=== PATIENT | female | born 1960 | race African-American/Black ===

== ENCOUNTER 2020-09-11 14:41 | Inpatient (IN) | payer OTHER ==
[~2020-09-11] VITALS: Ht 162.6 cm; Wt 68.0 kg
[2020-09-11 14:42] VITALS: BP 163/117
[2020-09-11] MEDS ORDERED: NORCO 10-325 T1 EACH PO (14:56)
[2020-09-11] MEDS ORDERED: LORAZEPAM 0.50.5 MG PO (14:56)
[2020-09-11] MEDS ORDERED: LANTUS SUBQ (14:57)
[2020-09-11] MEDS ORDERED: TRULICITY0.75 MG/0. SUBQ (14:57)
[2020-09-11] MEDS ORDERED: PROMETH-CODEIN 65 ML PO (14:58)
[2020-09-11 15:20] LABS: ABSOLUTE NEUTROPHILS 6.9 thou/uL (1.4-8.2); BASOPHILS 0.6 % (0.0-2.0); EOSINOPHILS 1.4 % (0.0-3.0); HEMATOCRIT 38.5 % (37.0-47.0); HEMOGLOBIN 12.3 gm/dL (12.0-15.0); MCH 29.1 pg (26.0-34.0); MCHC 32.1 g/dL (28.0-37.0); MCV 90.5 fL (80.0-100.0); MONOCYTES 9.1 % (1.0-8.0); PLATELET COUNT 490 thou/uL (150-400); POLYS 54.9 % (36.0-66.0); RBC 4.25 mil/uL (4.20-5.00); WBC 12.6 thou/uL (4.0-11.0)
[2020-09-11 15:28] LABS: CALCIUM 9.2 mg/dL (8.5-10.1); CREATININE 0.9 mg/dL (0.6-1.0); POTASSIUM 3.1 mmol/L (3.5-5.1)
--- NOTE | 2020-09-11 15:40 | NUR ---
RT IN AND ADMINISTERING NEB TX
[2020-09-11 18:30] VITALS: BP 163/117
[2020-09-11 18:50] VITALS: BP 167/86
[2020-09-11 19:32] VITALS: BP 173/109
[2020-09-12] VITALS (7 sets, daily range): BP systolic 151–167; BP diastolic 84–106
--- NOTE | 2020-09-12 02:57 | NUR ---
Judson from lab called, notified that patient is covid -19 postive.
[2020-09-12 06:20] LABS: HEMATOCRIT 35.8 % (37.0-47.0); HEMOGLOBIN 11.7 gm/dL (12.0-15.0); MCH 29.8 pg (26.0-34.0); MCHC 32.7 g/dL (28.0-37.0); MCV 91.1 fL (80.0-100.0); RBC 3.93 mil/uL (4.20-5.00); RDW 14.2 % (10.5-14.5); WBC 15.1 thou/uL (4.0-11.0)
[2020-09-12 06:29] LABS: CALCIUM 9.6 mg/dL (8.5-10.1); CREATININE 1.1 mg/dL (0.6-1.0)
[2020-09-12 06:37] LABS: POTASSIUM 4.2 mmol/L (3.5-5.1)
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
[2020-09-12 16:38] LABS: ALBUMIN 3.6 g/dL (3.4-5.0); DIRECT BILIRUBIN < 0.1 mg/dL (<0.1-0.2); SGOT 41 U/L (15-37); SGPT 48 U/L (14-59); TOTAL BILIRUBIN 0.3 mg/dL (0.2-1.0)
--- NOTE | 2020-09-12 18:45 | NUR ---
ASSUMED PATIENT CARE AT 0700. A/O 4. VERY ANXIOUS. ON 3L/NC. ST ON MONITOR. UP AD DIXIE. AFEBRILE. WILL KEEP MONITOR.
[2020-09-13 00:05] VITALS: BP 128/95
[2020-09-13 04:05] LABS: ALBUMIN 3.4 g/dL (3.4-5.0); DIRECT BILIRUBIN < 0.1 mg/dL (<0.1-0.2); SGOT 374 U/L (15-37); SGPT 291 U/L (30-65); TOTAL BILIRUBIN 0.4 mg/dL (0.2-1.0); TOTAL PROTEIN 6.6 g/dL (6.4-8.2)
[2020-09-13 04:06] VITALS: BP 172/127
--- NOTE | 2020-09-13 05:26 | HC ---
[facility] [place] [address] CONSULTATION Name: ONUR CLINTON Room #: 360-P ADM IN M.R.#: [id number] Admission: 09/11/20 Attend Phys: Christian Sherman MD Discharge: Date of : 64 Report #: [id number] THIS REPORT FOR: cc: FAM - No family physician/PCP FAM - No family physician/PCP Randall Nguyen MD ~ DATE OF SERVICE: 09/12/2020 INFECTIOUS DISEASE CONSULTATION ATTENDING PHYSICIAN: Dr. Sherman. REASON FOR EVALUATION: COVID-19 infection, complicated by pneumonitis. HISTORY OF PRESENT ILLNESS: Chart reviewed, patient examined. This is a 60-year-old woman with diabetes mellitus, also apparently has some underlying COPD, who has not been feeling well for a lengthy period of time, perhaps 3 months, although over the course of the last week has had increasing difficulty breathing, has had anxiety component as well. She has become very uncomfortable with repeated paroxysms of coughing describes a band-like pain around her mid chest. It is not clear if she had fevers or chills. She presented to the Emergency Room, white count was slightly elevated. Chest x-ray noted perhaps right basilar pneumonitis. Lactic acid is 1.7. COVID antigen testing was negative with PCR being positive. Blood cultures are sterile thus far. She denies any recorded temperature elevations. She is empirically started on ceftriaxone and doxycycline, later it was discontinued and now is on azithromycin. ALLERGIES: None known. MEDICATIONS: Include ondansetron, polyethylene, hydrocodone, methylprednisolone, enoxaparin, insulin glargine, lorazepam, ceftriaxone, azithromycin, zinc, cholecalciferol, thiamine, and ascorbic acid. PAST MEDICAL HISTORY: Diabetes mellitus type 2, hypertension, anxiety, asthma, depression, fibroid tumors, and endometriosis. SOCIAL HISTORY: Does smoke cigarettes, occasional ethanol, no illicit drug use. FAMILY HISTORY: Noncontributory. REVIEW OF SYSTEMS: Otherwise, unremarkable. PHYSICAL EXAMINATION: GENERAL: She is quite anxious, in [id number] distress, and reasonably [facility] [address] [place] [address] CONS[facility]ATION [facility] IN ..#: [id number] Admission: 09/11/20 Attend Phys: Christian Sherman MD Discharge: Date of : 64 Report #: [id number] well nourished. VITAL SIGNS: Temperature 98, pulse 110, respirations 20, blood pressure 154/99. SKIN: Warm, dry, no rashes. HEENT: Normocephalic. Extraocular muscles are intact. Nasal cannula is in place. NECK: Supple. LUNGS: Diminished breath sounds. Few scattered crackles at the bases. HEART: Regular, tachycardic. I do not appreciate a murmur. ABDOMEN: Soft, nontender. EXTREMITIES: No cyanosis. GENITOURINARY AND RECTAL: Deferred. LABORATORY DATA: Electrolytes: Sodium 140, potassium 4.2, chloride 105, bicarbonate is 23, anion gap of 12, BUN and creatinine 11 and 1.1, and glucose of 284. CBC: White count of __, H 11.7 and 35.8, and platelets of 441. Lactic acid is 1.7. ASSESSMENT: 1. COVID-19 infection, complicated by pneumonitis and respiratory failure. 2. Diabetes mellitus. 3. Anxiety. 4. Hypertension. We will add Remdesivir, ivermectin to her coronavirus treatment. She remains somewhat tenuous at this point, it is difficult to ascertain what role anxiety is playing, but I suspect significant continued symptomatic treatments as able. We will add incentive spirometry. Monitor expectantly. <ELECTRONICALLY SIGNED> By: Randall Nguyen MD 09/13/20 0526 [id number] [id number] Randall Nguyen MD /nt
--- NOTE | 2020-09-13 06:35 | NUR ---
Pt. is very anxious at beginning of shift. C/O rib cage pain from coughing too much , offered pain med and cough med but refused when offered. Elevated BP due to coughing when BP is taken. She started coughing out phlegm and stated there's blood in it. Sputum is pinkish and blood tinged. Around 2215 , she called to say she's having an attack and can't breathe. Found sitting up on bed without her oxygen. She is on O2 at 2L/NC initially then she takes it off when getting up to the bathroom.Encouraged pt. to keep oxygen when getting up to the bathroom , she has enough tubing to reach bathroom. Offered to use commode until she is breathing better , but she gets argumentative stating she is not invalid. Lorazepam and hydrocodone given to help with anxiety and pain. Oxygen titrated up to 5L at that time to keep her O2 sat greater than 90%. RT notified . Once pt. started to calm down , BP is better and able to titrate oxygen back down to 3L/NC. She slept well until 0400 then once she woke up she's having another episode of being short of breathe again. She is tachypneic , coughing out pinkish pleghm ( this is before guiafenessin elixir given ). RT paged who gave her breathing tx. Hydrocodone and guiafenessin given. WATCHER [employer] notified and orders received. IV fluids dc'd , CXR ordered for this am and to give morphine to help with air hunger. Pt. refused to take morphine stating she had a bad reaction to that and she only takes med that starts with letter D. BP is again elevated as she coughs whenever BP is taken. Pt. encouraged to relax and take a deep breath to conserve her energy and oxygen consumption.
[2020-09-13 07:49] VITALS: BP 129/87
[2020-09-13 11:43] VITALS: BP 145/97
[2020-09-13 18:16] VITALS: BP 155/101
--- NOTE | 2020-09-13 18:46 | NUR ---
PATIENT HAS RESTED IN ROOM THROUGH THE DAY. SHE IS ALERT ORIENTED X4. DOES NOT SEEM TO BE IN PAIN AT THIS TIME. EARLIER SHE HAD PAIN MEDICATION AND ATIVAN WHICH DID HELP HER ANXIETY AND CHEST PAIN. WILL CONT WITH PLAN OF CARE.
[2020-09-13 19:58] VITALS: BP 142/93
[2020-09-14 01:08] VITALS: BP 149/97
--- NOTE | 2020-09-14 03:51 | NUR ---
CARE ASSUMED 1900. PT NERVOUS AND AXIOUS. COURSE CRACKLES IN ALL LUNG MILLS. FLUID DC'D PT CURRENT ONLY ABX INTRAVENOUSLY. REPORTS DRY COUGH AND ASKING WHEN SHE WILL GET TO GO HOME. PT IS ALSO TACHYPNEIC AND TACHYCARDIC WHICH CAN BE ATTRIBUTED TO HER ANXIOUSNESS. ATIVAN GIVEN X 1. ORDERED PROMETHAZINE PT REPORTS THE ALREADY ORDERED GUAIFENESIN WAS NOT ALLEVIATING HER COUGH. DAUGHTER UPDATED ABOUT PATIENTS CONDITION. WILL CONTINUE TO MONITOR AND FOLLOW POC/
--- NOTE | 2020-09-14 07:35 | EKG ---
[address] [employer] [place] [address] ELECTROCARDIOGRAM REPORT Name: ONUR CLINTON [facility] Room #: 360-[facility] IN .R.#: [id number] Admission: 09/11/20 Attend Phys: Christian Sherman MD Discharge: Date of : 64 Report #: [id number] [facility] ED Test Date: 2020-09-11 Test Time: 15:12:09 Pat Name: ONUR CLINTON Department: Room: 360 Gender: F Gaming Host: lew : 1960 Requested By: Casey Meléndez Order Number: [id number] MD: Stefan Cui Measurements Intervals [place] Rate: 112 P: 78 IN: 152 QRS: 6 QRSD: 92 T: QT: 374 QTc: 511 Interpretive Statements Sinus tachycardia Anterior infarct, old Prolonged QT interval No previous ECG available for comparison Electronically Signed On 09-14-2020 7:34:52 PIPING DESIGNER by Stefan Cui [email or web address] <ELECTRONICALLY SIGNED> By: Stefan Cui MD, [facility] 09/14/20 0734 1512 1512 Stefan Cui MD, FACC /EPI
[2020-09-14 08:30] VITALS: BP 149/92
[2020-09-14 08:39] LABS: HEMATOCRIT 35.3 % (37.0-47.0); HEMOGLOBIN 11.3 gm/dL (12.0-15.0); MCH 29.5 pg (26.0-34.0); MCHC 32.1 g/dL (28.0-37.0); MCV 91.8 fL (80.0-100.0); RBC 3.85 mil/uL (4.20-5.00); RDW 14.6 % (10.5-14.5); WBC 22.6 thou/uL (4.0-11.0)
[2020-09-14 09:04] LABS: CALCIUM 9.3 mg/dL (8.5-10.1); POTASSIUM 4.4 mmol/L (3.5-5.1)
[2020-09-14 09:07] LABS: ALBUMIN 3.4 g/dL (3.4-5.0); DIRECT BILIRUBIN < 0.1 mg/dL (<0.1-0.2); SGOT 337 U/L (15-37); SGPT 303 U/L (14-59); TOTAL BILIRUBIN 0.3 mg/dL (0.2-1.0); TOTAL PROTEIN 6.4 g/dL (6.4-8.2)
--- NOTE | 2020-09-14 12:11 | NUR ---
pt went to restroom without oxygen or nurse/aid notification. Encouraged pt to call for assistance as to not desat. Pt stated she is fine. Audible wheezing heard upon ambulation back to bed.
[2020-09-14 12:45] VITALS: BP 157/98
--- NOTE | 2020-09-14 14:18 | NUR ---
Prior to administering medication, pt bed alarm was triggered. Pt did not call out for assist to bsc. Pt had removed oxygen with audible wheezing. This RN explained importance of having assist to bsc to remove SCDs as well as ensure oxygen tubing will reach. Pt refused to acknowledge this RN recommendation while stating, "I do not need help." Pt had also missed the commode and urine was covering the floor around pt. Floor was mopped and dried. Fall precautions in place with additional recommendation to pt for assist before getting up.
--- NOTE | 2020-09-14 16:07 | NUR ---
INITIAL ASSESSMENT: REBECCA reviewed chart and spoke with nursing and attending physician. Pt was admitted due to pneumonia. Pt placed in Enhanced Isolation due to COVID. Pt is afebrile and on 5L of O2. Pt is on IV abx and IV steroids. Pt is on Remdesivir and Ivermectin. REBECCA spoke with pt via phone. Introduced role of SW. Pt is alert/orientated and states she is in town visiting her cousins. Pt normally lives out in [place]. Prior to admission, pt was independent with ADLs. No use of DME. No hx of HH or post-acute placement. Pt has a PCP in [place]. Pt voiced concerns regarding need for O2 and wanting to travel back to [place]. REBECCA is following to assist as needed with discharge planning.
[2020-09-14 17:38] VITALS: BP 148/104
[2020-09-14 20:55] VITALS: BP 153/95
[2020-09-15 04:42] VITALS: BP 151/101
[2020-09-15 05:43] LABS: HEMATOCRIT 34.9 % (37.0-47.0); HEMOGLOBIN 11.1 gm/dL (12.0-15.0); MCH 29.1 pg (26.0-34.0); MCHC 31.9 g/dL (28.0-37.0); MCV 91.2 fL (80.0-100.0); RBC 3.82 mil/uL (4.20-5.00); RDW 14.6 % (10.5-14.5); WBC 19.3 thou/uL (4.0-11.0)
[2020-09-15 06:14] LABS: CALCIUM 8.7 mg/dL (8.5-10.1); CREATININE 0.9 mg/dL (0.6-1.0); POTASSIUM 4.2 mmol/L (3.5-5.1)
[2020-09-15 06:16] LABS: ALBUMIN 3.3 g/dL (3.4-5.0); DIRECT BILIRUBIN 0.1 mg/dL (<0.1-0.2); TOTAL BILIRUBIN 0.3 mg/dL (0.2-1.0); TOTAL PROTEIN 5.8 g/dL (6.4-8.2)
--- NOTE | 2020-09-15 06:30 | NUR ---
PT UP TO BATHROOM WITH MINIMAL ASSIST. PT ASKING QUESTIONS ABOUT DISCHARGE AND ANSWERED QUESTIONS AND EDUCATED PT. RECOVERED STOOL SAMPLE AND DELIVERED TO LAB. PT REQUEST WERE MINIMAL THIS SHIFT.
[2020-09-15 07:58] VITALS: BP 91/69
[2020-09-15 11:03] VITALS: BP 132/81
--- NOTE | 2020-09-15 13:26 | NUR ---
REBECCA reviewed chart and spoke with nursing and attending physician. Pt remains in Enhanced Isolation due to COVID. Pt is afebrile and is now down to 3L of O2. Pt is on IV abx and IV steroids. Pt has completed course of Ivermectin. Remdesivir has been stopped due to elevated LFTs. manager multimedia has met with pt to discuss plan of care. REBECCA placed call to pt's room. No answer. Pt will need a rest/exercise oximetry prior to discharge to determine if pt needs home O2. REBECCA is following to assist as needed with discharge planning.
[2020-09-15 15:48] VITALS: BP 156/94
--- NOTE | 2020-09-15 17:09 | NUR ---
PT SEEN TODAY BY , , RT, AND RN AT THE BEGINNING OF THE SHIFT PT WAS CONSOLABLE AND REDIRECTABLE. PT WAS AOX4 THOUGH SHE WAS SHOWING SIGNS OF ANXIETY, RN WAS TOLD DURING REPORT ON WHAT THE PT PREFERS SUCH NOONE TOUCHING HER TABLE AND ALLOWING PT TO PERFORM BLOOD SUGAR CHECKS AND INSULIN ADMINISTRATION HER SELF. RN BUILT A RAPPORT WITH THE PT AND THINGS WERE MOVING ALONG PEACEFULLY. AROUND NOON PT HAD COMPLAINED THAT THE R UA IV SITE HAS BEEN HURTING AND LEAKING AND STATED THAT IT NEEDED TO BE REMOVED, RN ASSESSED THE SITE AND DETERMINED SO WELL. RN REMOVED THE IV. AND PT APPEARED TO BE A HARD STICK SO RN SUGGESTED THE IV TEAM RN DO IT. THATS WHEN PT HAD BECOME AGITATED WITH THE RN STATING WHO HAD TOLD THE RN THAT PT WAS A HARD STICK AND WAS INCONSOLABLE AND BECAME VERY CONFRONTATIONAL WITH THE RN. SHE STATED THAT SHE WANTED TO SHOWER SO RN ASKED IF IT WAS APPROPERIATE FOR THE PT TO SHOWER AND SHE WAS GIVEN ALL THE SUPPLIES TO SHOWER WELL NEW FRESH LINEN SET FOR AFTER THE SHOWER. PT HAD VERBALIZED AT THAT POINT THAT IF ANYONE FROM THE FAMILY CALLS "DON'T TELL THEM NOTHING" PT WAS STILL VERY AGITATED AND ABUSING THE CALL LIGHT ASKING FOR DIFFERENT RNs TO COME INTO THE ROOM (THE HEAD RN, THE MAIN RN, AND OTHER VARIOUS STAFF MEMBERS) TO ADDRESS ISSUES THAT PT HAD FORMULATED HERSELF. SUCH WHEN THIS RN ENTERED THE ROOM, SHE ASKED ARE YOU THE HEAD RN, WHICH RN STATED NO, I AM GUSTAVO YOUR NURSE. THE PT GOT VERY UPSET AND SAID THAT RN WAS BEING CONDESCENDING TO THE PT AND THATS NOT WHAT SHE HAD ASKED. TO WHICH RN WAS PERPLEXED AND ASKED WHAT THE PT HAD WANTED. PT THEN GOT INCREASINGLY UPSET. RN LEFT THE ROOM TO ADDRESS AND WHEN RN EXITED THE ROOM PT HAD STOMPED OUT OF THE ISOLATION (PT AOX4 KNOWING THAT SHE IS COVID POSITIVE AND AWARE OF HER SITUATION) "YELLED DID YOU NOT HEAR ME? I CALLED YOU THREE TIMES" AND RN REPLIED NO I HAVE NOT HEARD YOU I WOULD'VE REPLIED. PT BECAME VERBALLY AGGRESSIVE TOWARDS, BEING VERY CONFRONTATIONAL, NOTING/ANALYZING/HIGHLIGHTING EVERY PITCH OF THE RN'S VOICE MAKING IT NEAR IMPOSSIBLE TO DEAL WITH THE PT. RN AT THAT POINT DECIDED IT WAS NOT APPROPERIATE FOR PT TO ABUSE THE STAFF MEMBERS SUCH AND ESCLATED THE SITUATION TO NOTIFY NURSE X RAY TECH SANTIAGO, ALEJANDRO PT ADVOCATE, WELL MATTRESS STUFFER. EVERY SINGLE STAFF MEMBER ON THE UNIT HAD WITNESSED PT'S INAPPROPERIATE BEHAVIOUR AND HOSPITALIST WELL ALL CONSTITUTION PARTY JUST MENTIONED KNOWS PT IS EXHIBITING OTHERWISE AN UNACCEPTABLE BEHAVIOUR TOWARDS THE STAFF. ONLY WHEN THE HAD WENT INTO THE ROOM TO TELL THE PT THAT SHE MAY BE DISCHARGING TOMORROW THE PT HAD STATED THAT EVERYTHING IS RESOLVED NOW AND SUDDENLY TURNED A NEW PAGE EVEN STARTING TO SMILE. PT JUST PRIOR TO 'S ENTERANCE HAD DECLINED MEDICAL TREAMENT FROM THIS RN AND WOULD NOT ALLOW RN TO PLACE PT'S IV. LATER IN THE DAY AROUND 1500, PT'S DAUGHTER HAD CALLED AND ASKED FOR PT'S INFORMATION, TO WHICH RN STATED THAT PT REQUESTED THAT NO ONE IN HER FAMILY CAN HAVE HER INFORMATION, PT'S DAUGHTER PLEADED THAT SHE CAN HAVE INFOMRATION ABOUT HER MOTHER SHE IS NOT APPROPERIATE RIGHT NOW AND SHOULD NOT BE DISCHARGING. PT'S DAUGHTER PLEADED THAT RN REACH OUT THE MD TO HAVE MD SPEAK WITH HER REGARDING THE PLAN. SHE STATED THAT SHE WAS CALLING EVERYDAY AND HAD RETRIEVED HER INFORMATION PRIOR TO THIS AND THIS IS ODD BEHAVIOUR, SHE IS THE ONLY DAUGHTER OF THE PT. RN REACHED OUT TO AND ASKED IF SHE WANTED TO SPEAK WITH THE DAUGHTER, SAID HE MAY REACH OUT OR HAVE REACH OUT PRIOR TO DISCHARGE, BUT PT WOULD BE NOTIFIED. RN COMMUINCATED THIS TO THE DAUGHTER. LATER WHEN RN WENT INTO THE ROOM BECAUSE THE PT HAD SPECIFICALLY REQUESTED FOR THIS RN TO COME INTO THE ROOM. RN ADMINISTERED MEDS AND SHE WAS SPEAKING WITH THE VERY SAME DAUGHTER THEY WERE HAVING AN ALTERCATION REGARDING WHY PT HAD SAID TOLD THE DR AND RN NOT TO DISCLOSE THE INFORMATION, AND PT GOT THIS RN INVOLVED IN THE MIDDLE TO WHICH RN PICKED UP THE PHONE SAID RN IS PT ADVOCATE AND STATED THAT PT REQUESTED NOT TO GIVE INFORMATOIN SO RN DIDN'T, BUT AT THE BEDSIDE PT STATED THAT ALL MEMBERS OF HER FAMILY CAN HAVE HER INFORMATION STRAIGHT TO THE POINT THEY WANT AND RN STATED THAT SINCE THE PT JUST STATED THAT WHILE DAUGHTER BEING ON SPEAKER THAT RN WILL NOW RELEASE INFORMATION AND THAT WAS THE BOTTOM LINE TO WHICH BOTH PARTIES STATED THAT IT WAS CRYSTAL CLEAR. RN THEN LEFT THE ROOM AND LATER WAS TOLD BY RECORDING STUDIO SETUP WORKER THAT PT WAS CALLING THE COMPLIANCE EXAMINER ON THIS RN, TO WHICH RN HAS NO IDEA WHY THE RN WOULD BE IN THIS MESS. PT IS EXTREMELY VOLATILE, INAPPROPERIATE AND UPSETTING TO DEAL WITH. RN HAS COMMUNICATED THIS WITH THE MATTRESS STUFFER WELL THE MD, WELL THE WIG STYLIST TO WHICH WIG STYLIST STATED FOR THE REST OF THE SHIFT SHE WILL TAKE CARE OF THIS PT SINCE SHE HAS A BETTER RAPPORT AT THE MOMENT. RN WILL TREAD LIGHTLY AND GO HOME.
[2020-09-15 20:11] VITALS: BP 149/81
--- NOTE | 2020-09-15 21:33 | NUR ---
PT GAVE OK FOR NURSE TO TALK WITH DAUGHTER SANTIAGO DE LA GARZA. DAUGHTER WANTS DR BARRAGAN AND CASE MANAGEMENT TO CALL HER IN THE AM. DAUGHTER DOES NOT WANT PT DISCHARGING WITH ELEVATED LIVER ENZYMES. DAUGHTER STATED SHE DOES NOT KNOW IF PT IS GOING TO STAY WITH FAMILY IN OR DRIVE BACK TO [place] WHERE DAUGHTER LIVES. 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 PTS DAUGHTER IS SHARP TONED AND PATRONIZING WHEN TALKING WITH NURSE.
--- NOTE | 2020-09-15 22:56 | NUR ---
PT WATCHING TV. PT USING CALL LIGHT FREQUENTLY ASKING FOR PRN MEDICATIONS (ANXIETY, COUGH, CONSTIPATION, HEARTBURN) AFTER STAFF HAS LEFT THE ROOM, EVEN THOUGH SHE HAS BEEN ASKED IF SHE NEEDS ANYTHING ELSE PRIOR TO LEAVING. O2 PER NC, LUNGS DIMINISHED. PT DID HER OWN FSBS AND INSULIN INJECTIONS, MONITORED BY STAFF. PT DID GIVE OK FOR NURSE TO TALK WITH DAUGHTER. PT REQUESTING TO TALK WITH PT SENG AND NURSE UNION ORGANIZER REGARDING COMPLAINTS REGARDING HER CARE ON DAY SHIFT. EMAIL SENT, PER COMPUTER TYPESETTER SUGGESTION. PTS DAUGHTER IS WANTING TO BE CALLED BY AND VOICE SYSTEMS ENGINEER. WILL PASS THIS ON TO DAY SHIFT NURSE.
[2020-09-16 04:57] VITALS: BP 171/106
[2020-09-16 07:34] VITALS: BP 144/100
[2020-09-16 07:42] LABS: HEMATOCRIT 35.5 % (37.0-47.0); HEMOGLOBIN 11.4 gm/dL (12.0-15.0); MCH 29.4 pg (26.0-34.0); MCHC 32.2 g/dL (28.0-37.0); MCV 91.3 fL (80.0-100.0); PLATELET COUNT 392 thou/uL (150-400); RBC 3.89 mil/uL (4.20-5.00); RDW 14.9 % (10.5-14.5); WBC 19.7 thou/uL (4.0-11.0)
[2020-09-16 07:55] LABS: ALBUMIN 3.2 g/dL (3.4-5.0); DIRECT BILIRUBIN 0.1 mg/dL (<0.1-0.2); TOTAL BILIRUBIN 0.3 mg/dL (0.2-1.0); TOTAL PROTEIN 5.9 g/dL (6.4-8.2)
[2020-09-16 09:47] LABS: METAMYELOCYTES 5 %; MYELOCYTES 1 %
[2020-09-16 09:48] LABS: ANISOCYTOSIS 1+
--- NOTE | 2020-09-16 10:55 | NUR ---
CARE ASSUMED AT 0700, PT ALERT AND ORIENTED X4, DENIES ANY PAIN, NAUSEA AND VOMITTING. PT IS ON 2L OF OXYGEN, SOB WITH EXERTION. PT CONTINUE TO BE ANXIOUS AND OVERWORKING HERSELF.RELAXATION TECHNIQUE REINFORCED. PT CONTINUE TO BE IN ISOLATION. UP AD DIXIE. CALL LIGHT AND TABLE WITHIN REACH. BED AT LOWEST LEVEL. DENIES ANY NEED SYED, WILL CONTINUE TO MONITOR.
[2020-09-16 11:25] VITALS: BP 180/113
--- NOTE | 2020-09-16 14:19 | NUR ---
REBECCA reviewed chart and spoke with nursing and attending physician. Pt remains in Enhanced Isolation due to COVID. Pt is afebrile and on O2. Pt is on IV abx and IV steroids. Rest/exercise oximetry completed this morning. Pt requires 2L O2 continuously. Discharge home with home O2 is planned for tomorrow due to elevated LFTs. REBECCA spoke with pt via phone to discuss discharge plan. Pt is aware and in agreement with plan. Options provided for [employer] companies. No preference voiced. REBECCA verified pt's home address in [place] and her local address: [address] [place] [address]. [facility] [place] [id number]. Pt had many questions about her home O2 and what equipment will be provided. Pt requesting small portable O2 tanks. REBECCA faxed home O2 referral to [facility] and discussed with liaison, who will deliver smaller portable tanks to the hospital tomorrow. O2 service can be transferred to [place] office when pt returns to her home. Pt reports that her family will be able to provide transportation home tomorrow when discharged. Pt requested to speak with attending physician. REBECCA notified attending physician. REBECCA is following to assist as needed with discharge planning.
[2020-09-16 15:00] VITALS: BP 180/113
--- NOTE | 2020-09-16 19:07 | NUR ---
PT FAMILY MEMBER DROPPED ON PT INSULIN PEN, PT STATED ON TAKING HER OWN INSULIN. MINH GARCIA MADE AWARE AND WAS OKAY WITH PT TAKING HER OWN INSULIN. INSU,DALILA PEN SENT DOWN TO PHARMACY TO BE VERIFIED. INSULIN PEN AND CONSENT GIVEN TO ZOE CARRILLO. HANDOFF REPORT GIVEN TO ZOE CARRILLO WELL.
[2020-09-16 19:09] VITALS: BP 149/88
--- NOTE | 2020-09-16 21:45 | NUR ---
PT WANTS IV DCD SHE STATES SHE PLANS ON LEAVING TOMORROW AND NO LONGER NEEDS IT.
--- NOTE | 2020-09-16 21:58 | NUR ---
PT CALLED SPRAY PAINTER HELPER THIS EVENING DEMANDING HER HOME MEDS BE PROVIDED TO HER IMMEDIATELY. PHARMACY WAS CHECKING THEM IN AND PROVIDED TO PT. PT WAS CALM AND PLEASANT WITH NURSE. PT DID VENT HER FRUSTRATIONS REGARDING CARES PROVIDED ON DAY SHIFT YESTERDAY AND TODAY. PT VERBALIZED PLAN FOR DC TOMORROW. PT STATED SHE HAS NOT BEEN WEARING HER O2 TO PROVE HER SATS ARE HIGH ENOUGH WITHOUT NEEDING O2. LUNGS CLEAR. PT DID USE HOME MED LANTUS. PT CONTINUES TO COMPLETE OWN FSBS AND INJECTIONS.
--- NOTE | 2020-09-17 00:15 | NUR ---
Pt called this household worker upset because her meds had not been given. Per chart her insulin is due at 1900 and the call was made at 19:24. Pt also verbalized being unhappy because "nobody is doing anything for her here." Went through her EMAR and provided education on all of the medications she had been getting throughout the day. She states she doesn't think that she received them. Reassured that nursing has to scan her and the medication before it can be documented in the computer, reminding the patient that this did in fact occur earlier in the day. Followed up with pt's nurse to be sure that she was given her medications per her request.
[2020-09-17 07:55] VITALS: BP 165/106
[2020-09-17 09:19] LABS: CALCIUM 9.1 mg/dL (8.5-10.1); CREATININE 0.9 mg/dL (0.6-1.0); POTASSIUM 3.6 mmol/L (3.5-5.1)
[2020-09-17 09:23] LABS: ALBUMIN 3.2 g/dL (3.4-5.0); TOTAL BILIRUBIN 0.4 mg/dL (0.2-1.0)
[2020-09-17 11:35] VITALS: BP 166/103
--- NOTE | 2020-09-17 13:35 | NUR ---
REBECCA reviewed chart and spoke with nursing and attending physician. Pt remains in Enhanced Isolation due to COVID. Pt is afebrile and on O2. Pt with elevated LFTs and is not stable for discharge home today. Pt has portable O2 tanks ready for when she is discharged. REBECCA updated [facility] liaison. Pt will need her meds filled at [facility] when discharged. REBECCA is following to assist as needed with discharge planning.
--- NOTE | 2020-09-17 13:56 | NUR ---
CARE ASSUMED AT 0700, PT SEEMS TO BE IN A BETTER MOOD TODAY, ALERT AND ORIENTED X4, DENIES ANY PAIN, NAUSEA AND VOMITTING. CONTINUE TO BE ON 2L OF OXYGEN. PIV DRESSING CHANGE DONE. PT IS UP AD DIXIE. 1230 TABLE MAKER CHEKCED PT BLOOD GLUCOSE, TABLE MAKER STATED SHE SAW PT GAVE HER SELF HER OME LANTUS. THIS RN VERIFIED WITH PT, SHE ADMITTED GIVING HERSELF INSULIN, PT MADE AWARE ABPUT THE POSSILBE COMPLICATIONS OF GIVING HERSELF THAT MUCH LANTUS, STATED SHE IS AWRE AND THIS IS WHAT SHE NORMALLY DOES AT HOME. AFTER EDUCATIONA ND REINFORCEMENT, PT AGREED TO LET RN HAVE HER INSULIN PEN AND WILL HAVE IT BACK WHEN SHE IS LEAVING. DR. WILKINSON MADE AWARE OF THE SITUATION.
[2020-09-17 16:30] VITALS: BP 143/91
[2020-09-18 02:15] VITALS: BP 119/74
[2020-09-18 03:40] VITALS: BP 134/84
--- NOTE | 2020-09-18 07:36 | NUR ---
PT MAKING PROGRESS TOWARDS GOALS. ON ROOM AIR UPON INITIAL ASSESSMENT. PER MANAGER FINANCIAL REPORTING, PT DID SPOT CHECK O2 SAT AND WAS 91% ON ROOM AIR. PT DID PLACE HER CANNULA IN HER NOSE WHEN SHE WENT TO SLEEP, O2 AT 1L PER NC.
[2020-09-18 07:48] VITALS: BP 146/104
--- NOTE | 2020-09-18 10:08 | NUR ---
Assess due to length of stay. Admit, COVID+. Hx DM and with hyperglycemia, BG 200-396 aggravated with steroids. Has appropriate carb control diet ordered, tolerating meals, no wt loss. Elevated liver function. Low nutrition risk
[2020-09-18] MEDS ORDERED: PREDNISONE 10 M10 MG PO (12:16)
[2020-09-18 13:46] VITALS: BP 180/113
[2020-09-18 14:17] LABS: ALBUMIN 3.4 g/dL (3.4-5.0); CALCIUM 9.2 mg/dL (8.5-10.1); TOTAL BILIRUBIN 0.4 mg/dL (0.2-1.0); TOTAL PROTEIN 6.1 g/dL (6.4-8.2)
[2020-09-18 14:22] VITALS: BP 122/77
[2020-09-18 14:24] VITALS: BP 180/113
[2020-09-18] MEDS ORDERED: VITAMIN C1000 MG PO (15:01)
[2020-09-18] MEDS ORDERED: CALTRATE-600 W1 EACH PO (15:01)
[2020-09-18] MEDS ORDERED: VITAMIN D325 MC1 PO (15:01)
[2020-09-18] MEDS ORDERED: VITAMIN B-1100 M2 PO (15:01)
--- NOTE | 2020-09-18 15:02 | NUR ---
DISCHARGE NOTE: SW reviewed chart and spoke with nursing and attending physician. Pt is medically stable for discharge home today. Rest/exercise oximetry completed earlier today. Pt's O2 sats remained above 90% at rest and with activity. SW spoke with pt via phone to discuss discharge plan. Pt states that RT or someone told her that she will become short of breath when she is in high altitude on her drive home. Pt states that she has decided to start driving back to [place] today. [facility] Pt's concentrator and additional portable tanks have been delivered to her cousin's house in . Pt has a small portable tank that will last 4 hours on 2L continously. SW explained duration of small portable tank. Pt states that she will only use it when she feels that she needs it. SW also explained that her sats remained above 90%, which is good. Pt is adamant about need the O2. SW discussed with [facility] liaison who states that pt qualifies per COVID dx. Pt is encouraged to take the concentrator and portable tanks with her on her drive home. Local [facility] [place]'s contact number provided: [facility] [phone]. REBECCA spoke with pt again on the phone to confirm discharge plan. SW explained need to take DME that has been delivered to her cousin's home with her back to [place]. Pt states she will only take the portable tanks with her. She does not want to take the concentrator. SW explained that [facility] has branches along the way home, but the offices will not be opened on the weekends. The concentrator is to be plugged in to use while in one location. Pt states she will not use it at night and will be okay using the portable tanks as needed. SW provided contact info for her local [facility] branch to pt. And the [facility] website to review the map on her way back home if needed. Pt would not give SW the route she would be taking home. SW offered to give specific info if pt would provide info regarding route home. Pt not able to provide this info to SW. SW placed [facility] website address and contact info for branch and her [place] branch in her discharge summary. Pt's meds to be sent to [facility] outpatient pharmacy to be picked up on her way out. Pt had questions regarding meds. SW contacted attending physician to discuss with pt. Pt will have transportation to her cousins home when discharged. SW followed up with pt's nurse. [facility] portable tank to be sent home with pt. SW also discussed case with Director of Case Mgmt and Risk mgmt. Pt states she will be providing feedback to the hospital after her discharge. REBECCA updated [facility] liaison. No additional SW needs identified at this time, but is available to assist should needs arise.
--- NOTE | 2020-09-18 15:10 | NUR ---
ASSUMED CARE OF PT AT 0700. PT ANXIOUS, VOICING MANY CONCERNS REGARDING PHELBOTOMIST BLOOD DRAW THIS MORNING. EVENTUALLY PT IS AGREEABLE WITH DRAWING BLOOD. LIVER ENZYMES SHOWING IMPROVEMENT. OK TO DISCHARGE. PORTABLE O2 TANK DELIVERED BY [facility] WITH PATIENT. PT REPORTS LOSING EARING - ADMIN NOTIFIED. PT AGREEABLE W/ DC INSTRUCTIONS. WAITING ON OUTPATIENT PHARMACY MEDS FOR PICKUP.
== END 2020-09-18 15:46 | disposition home or self-care (01) | DRG 871 ==
LOC: ER 14:41 → 3W 18:11 → EROBS 18:11 → 3W 18:57
PROVIDERS: Emergency Medicine; Internal Medicine; Specialist; ADMIT Hospitalist; ATTEND Hospitalist
PROC: XW033E5 Introduction of Remdesivir Anti-infective into Peripheral Vein, Percutaneous Approach, New Technology Group 5 (ICD-10-PCS; principal; 2020-09-12)
DX: A41.89 Other specified sepsis (principal); U07.1 COVID-19; J96.01 Acute respiratory failure with hypoxia; J12.82 Pneumonia due to coronavirus disease 2019; J44.1 Chronic obstructive pulmonary disease with (acute) exacerbation; J44.0 Chronic obstructive pulmonary disease with (acute) lower respiratory infection; I10 Essential (primary) hypertension; E11.9 Type 2 diabetes mellitus without complications; J45.909 Unspecified asthma, uncomplicated; F32.9 Major depressive disorder, single episode, unspecified; F17.210 Nicotine dependence, cigarettes, uncomplicated; R59.1 Generalized enlarged lymph nodes; R74.01 Elevation of levels of liver transaminase levels; F41.1 Generalized anxiety disorder; Z71.6 Tobacco abuse counseling; Z79.899 Other long term (current) drug therapy
CPT/HCPCS: 10879